=== PATIENT | male | born 1985 | race Caucasian/White ===

== ENCOUNTER 2017-12-12 19:56 | Emergency (ER) | payer OTHER ==
[2017-12-12 20:38] LABS: BASOPHILS % (AUTO) 0.2 % (0.0-5.0); EOSINOPHILS % (AUTO) 0.2 % (0.0-8.0); HEMATOCRIT 43.1 % (42-54); LYMPHOCYTES % (AUTO) 10.2 % (21.0-51.0); MEAN CORPUSCULAR HEMOGLOBIN 28.8 pg (27.0-33.0); MEAN CORPUSCULAR HGB CONC 34.6 g/dL (32.0-36.0); MEAN CORPUSCULAR VOLUME 83.4 fL (79-99); MONOCYTES % (AUTO) 2.8 % (3.0-13.0); NEUTROPHILS % (AUTO) 86.6 % (40.0-77.0); PLATELET COUNT (AUTO) 275 K/uL (130-400); RED BLOOD CELL COUNT(AUTO) 5.16 MIL/uL (4.50-6.20); RED CELL DISTRIBUTION WIDTH 12.8 % (11.0-15.5)
[2017-12-12 20:47] LABS: POTASSIUM 3.8 mmol/L (3.5-5.1)
[2017-12-12] MEDS ORDERED: DiphenhydrAMINE HCL 50 MG/ML VIAL ONE (20:53)
[2017-12-12 20:54] LABS: ALBUMIN 4.2 g/dL (3.5-5.0); BILIRUBIN,TOTAL 0.4 mg/dL (0.2-1.0); TOTAL PROTEIN, SERUM 7.2 g/dL (6.0-8.3)
[2017-12-12] MEDS ORDERED: LORAZEPAM 2 MG/ML 1 ML VIAL ONE (20:54)
[2017-12-12] MEDS ORDERED: FAMOTIDINE/PF 20 MG/2 ML VIAL IV ONE (20:54)
[2017-12-12] MEDS ORDERED: SODIUM CHLORIDE 0.9% 1000ML 1,000 ML IV ONE (20:54)
[2017-12-12] MEDS ORDERED: HALOPERIDOL LACTATE 5 MG/ML VIAL ONE (23:27)
== END 2017-12-13 02:03 | disposition home or self-care (01) ==
LOC: EDH 19:56
DX: G47.00 Insomnia, unspecified (principal); R07.89 Other chest pain; F41.9 Anxiety disorder, unspecified
CPT/HCPCS: 36415; 71275; 80053; 82550; 83690; 84484; 85025; 93005; 96374; 96375; 99285; J1200; J2060; J3490; J7030; Q9967; J1630

== ENCOUNTER → 2017-12-12 | Outpatient (CLI) | payer OTHER ==
[~2017-12-12] MED LIST: IOHEXOL-350 75 ML VIAL IV ONE
== END | disposition home or self-care (01) ==
LOC: RAH 08:28
PROVIDERS: ATTEND Internal Medicine Cardiovascular Disease
DX: R91.1 Solitary pulmonary nodule (principal); J84.10 Pulmonary fibrosis, unspecified
CPT/HCPCS: 71275; Q9967

== ENCOUNTER 2018-09-11 08:12 | Day surgery (SDC) | payer OTHER ==
[~2018-09-11] VITALS: Ht 172.7 cm; Wt 65.8 kg
[~2018-09-11 08:12] MED LIST changes: -IOHEXOL-350 75 ML VIAL IV ONE; +SODIUM CHLORIDE 0.9% 1000ML 1,000 ML IV ONE
[2018-09-11 08:35] VITALS: BP 106/62
[2018-09-11] MEDS ORDERED: OMEP40CA37 PO (08:53)
[2018-09-11] MEDS ORDERED: FEXO180T94 PO (08:53)
[2018-09-11] MEDS ORDERED: PROPOFOL 10 MG/ML 20ML VIAL IV ONE ×2 (10:20→10:39)
[2018-09-11 11:19] VITALS: BP 107/64
[2018-09-11 11:25] VITALS: BP 121/45
[2018-09-11 11:32] VITALS: BP 107/76
[2018-09-11 11:39] VITALS: BP 119/79
== END 2018-09-11 11:58 | disposition home or self-care (01) ==
LOC: DAH 08:12 → ENDO 08:12
PROVIDERS: ATTEND Internal Medicine
DX: K29.50 Unspecified chronic gastritis without bleeding (principal); K21.0 Gastro-esophageal reflux disease with esophagitis; J30.9 Allergic rhinitis, unspecified; R07.9 Chest pain, unspecified; Z79.899 Other long term (current) drug therapy; Z98.890 Other specified postprocedural states; R05 Cough
CPT/HCPCS: 43239; 88305; 91035; A4606; A4649; J2704 ×2; J7030; 43235

== ENCOUNTER → 2019-08-23 | Outpatient (CLI) | payer OTHER ==
[~2019-08-23] MED LIST changes: +FEXO180T94 PO; +OMEP40CA13 PO; -SODIUM CHLORIDE 0.9% 1000ML 1,000 ML IV ONE
== END | disposition home or self-care (01) ==
LOC: RAH 13:32
PROVIDERS: ATTEND Internal Medicine
DX: E04.1 Nontoxic single thyroid nodule (principal)
CPT/HCPCS: 36415; 76536; 84439; 84479; 84481